=== PATIENT | male | born 1985 | race Caucasian/White ===

== ENCOUNTER 2019-08-31 19:50 | Emergency (ER) | payer OTHER ==
[~2019-08-31] VITALS: Ht 182.9 cm; Wt 142.9 kg
[~2019-08-31 19:50] MED LIST: AMILORIDE HCL-1 EACH PO; CIPROFLOXACIN500 M1 PO; DIFLUCAN150 MG PO; FLAGYL500 MG PO; HEADACHE MED; IBUPROFEN 800800 MG PO; MICROZIDE12.5 MG PO; NOHOMEMEDICATIONS; PEPCID40 MG PO; PREDNISONE 20 M20 MG PO; SINGULAIR 10 MG10 M1 PO
[2019-08-31] MEDS ORDERED: KEFLEX500 M1 PO (21:08)
[2019-08-31] MEDS ORDERED: LORCET 5-325 M1 EACH PO (21:08)
[2019-08-31 21:26] VITALS: BP 135/89
== END 2019-08-31 21:27 | disposition home or self-care (01) ==
LOC: M.ERS 19:50
DX: S61.213A Laceration without foreign body of left middle finger without damage to nail, initial encounter (principal); S93.492A Sprain of other ligament of left ankle, initial encounter; I10 Essential (primary) hypertension; Z88.6 Allergy status to analgesic agent; Z87.891 Personal history of nicotine dependence; V29.49XA Motorcycle driver injured in collision with other motor vehicles in traffic accident, initial encounter; Y93.89 Activity, other specified; Y92.89 Other specified places as the place of occurrence of the external cause; Y99.8 Other external cause status

== ENCOUNTER 2020-01-24 08:00 | Emergency (ER) | payer OTHER ==
[~2020-01-24] VITALS: Ht 182.9 cm; Wt 145.2 kg
[~2020-01-24 08:00] MED LIST changes: +KEFLEX500 M1 PO; +LORCET 5-325 M1 EACH PO
[2020-01-24] MEDS ORDERED: TRAMADOL 50 MG50 MG PO (08:15)
[2020-01-24] MEDS ORDERED: FLEXERIL PO (08:15)
[2020-01-24 08:26] VITALS: BP 209/143
== END 2020-01-24 08:27 | disposition home or self-care (01) ==
LOC: M.ERS 08:00
DX: S39.012A Strain of muscle, fascia and tendon of lower back, initial encounter (principal); Z88.6 Allergy status to analgesic agent; Z87.442 Personal history of urinary calculi; X58.XXXA Exposure to other specified factors, initial encounter; Y93.89 Activity, other specified; Y92.89 Other specified places as the place of occurrence of the external cause; Y99.8 Other external cause status